=== PATIENT | female | born 1955 | race Caucasian/White ===

== ENCOUNTER → 2017-05-03 | Outpatient (CLI) | payer BC ==
--- NOTE | 2017-05-07 09:01 | MM ---
Reason for exam: screening (asymptomatic). Last mammogram was performed 1 year and 10 months ago. History: Patient is postmenopausal and had first child at age 38. Took estrogen for 4 years beginning at age 54. Physical Findings: A clinical breast exam by your physician is recommended on an annual basis and results should be correlated with mammographic findings. MG 3D Screening Mammo W/Cad Bilateral CC and MLO view(s) were taken. Prior study comparison: July 13, 2015, bilateral MG work up mamm w CAD BILAT. July 06, 2015, bilateral MG screening mammo w CAD. June 09, 2014, bilateral MG screening mammo w CAD. May 13, 2013, bilateral digital screening mammo w/CAD. The breast tissue is heterogeneously dense. This may lower the sensitivity of mammography. No significant changes when compared with prior studies. ASSESSMENT: Negative, BI-RAD 1 RECOMMENDATION: Routine screening mammogram of both breasts in 1 year.
== END | disposition home or self-care (01) ==
LOC: RADMAMWWP 09:43
PROVIDERS: ATTEND Obstetrics & Gynecology
DX: Z12.31 Encounter for screening mammogram for malignant neoplasm of breast (principal)
CPT/HCPCS: 77063; 77067

== ENCOUNTER → 2018-09-09 | Outpatient (CLI) | payer BC ==
--- NOTE | 2018-09-10 08:00 | MM ---
Reason for exam: additional evaluation requested from prior study. Last mammogram was performed 1 year and 4 months ago. History: Patient is postmenopausal and had first child at age 38. Took estrogen for 4 years beginning at age 54. Physical Findings: Nurse Summary: 1.5cm nodule in the right breast at 5-6 o'clock near nipple (nurse mj). MG 3D Diag Mammo W/Cad LUIS Bilateral CC and MLO view(s) were taken. Spot compression MLO and ML view(s) were taken of the right breast. Prior study comparison: May 03, 2017, bilateral MG 3d screening mammo w/cad. July 13, 2015, bilateral MG work up mamm w CAD BILAT. The breast tissue is heterogeneously dense. This may lower the sensitivity of mammography. Finding #1: There is a 8 mm round mass in the upper outer quadrant, middle position of the right breast. Finding #2: There are typically benign round calcifications in both breasts. These results were verbally communicated with the patient and result sheet given to the patient on 09/09/18. ASSESSMENT: Incomplete: need additional imaging evaluation, BI-RAD 0 RECOMMENDATION: Ultrasound of the right breast. (right mammographic abnormality and palpable)
--- NOTE | 2018-09-10 08:02 | USB ---
Reason for exam: additional evaluation requested from abnormal screening. History: Patient is postmenopausal and had first child at age 38. Took estrogen for 4 years beginning at age 54. US Breast RT Right complete breast ultrasound includes all four quadrants, the retroareolar region and axilla. Finding demonstrates a 0.6 x 0.5 x 0.6cm round, hypoechoic, vascular lesion at 5 o'clock. These results were verbally communicated with the patient and result sheet given to the patient on 09/09/18. ASSESSMENT: Suspicious, BI-RAD 4 RECOMMENDATION: Ultrasound core biopsy of the right breast. (+/- FNA) Called Dr. Schulte with mammographic findings and has scheduled an appointment for the patient for 10/08/18 at 1:[address] Sidhu. Biopsy scheduled for 10/01/18 at 2:00. PRELIMINARY REPORT CALLED AND FAXED TO DR. SIDHU ON 09/10/18.
== END | disposition home or self-care (01) ==
LOC: RADMAMWWP 14:20
PROVIDERS: ATTEND Obstetrics & Gynecology
DX: N64.4 Mastodynia (principal); R92.8 Other abnormal and inconclusive findings on diagnostic imaging of breast
CPT/HCPCS: 77062; 77066

== ENCOUNTER → 2018-10-01 | Day surgery (SDC) | payer BC ==
[2018-10-01 13:45] VITALS: RESP 16; BMI 22.1
[2018-10-01 14:42] VITALS: BP 114/74; PULSE 64; TEMP 97.8
--- NOTE | 2018-10-02 09:14 | USB ---
EXAMINATION TYPE: US biopsy breast VAD RT DATE OF EXAM: 10/01/2018 CLINICAL HISTORY: R92.8 Abnormal mammogram. TECHNIQUE: Ultrasound guided core biopsy of right breast. COMPARISON: Right breast ultrasound dated 09/09/2018 and diagnostic mammogram dated 09/09/2018 FINDINGS: The procedure of ultrasound guided core biopsy was explained to the patient. Benefits, alternatives, and risks were discussed. An informed consent was then obtained. A procedural timeout was performed. The patient was placed in supine positioning for imaging and for the procedure. The overlying skin was prepped and draped in usual sterile fashion. 10 cc of 1% lidocaine without epinephrine was used as anesthetic into the skin and subcutaneous tissue up to a 6 mm mass at the 5:00 position in the right breast. Under ultrasound guidance, a 12-gauge vacuum assisted biopsy gun device was used to obtain 5 core samples. Following this, a coil-shaped biopsy marker was left at the site of biopsy. Postprocedure mammogram demonstrates appropriate biopsy marker placement. The patient tolerated the procedure well without any immediate complication. The patient was kept in the radiology department for short stay after the procedure and then discharged home in stable condition. IMPRESSION: Successful, uncomplicated ultrasound guided core biopsy of a 6 mm mass at the 5:00 position in the right breast, full pathology results to follow. Pathology Results: Benign RIGHT BREAST, FIVE O'CLOCK, ULTRASOUND GUIDED CORE BIOPSY: Nodular scar with inflammation and fat necrosis. Negative for malignancy. See note. Recommendation Follow up ultrasound of the right breast in 6 months. GYPSYD
--- NOTE | 2018-10-02 09:21 | MM ---
Reason for exam: additional evaluation requested from abnormal screening. Last mammogram was performed 1 month ago. History: Patient is postmenopausal and had first child at age 38. Took estrogen for 4 years beginning at age 54. MG Diagnostic Mammo RT Wo CAD CC and ML view(s) were taken of the right breast. Prior study comparison: September 09, 2018, bilateral MG 3d diag mammo w/cad LUIS. May 03, 2017, bilateral MG 3d screening mammo w/cad. ASSESSMENT: Post procedure mammogram for marker placement RECOMMENDATION: Ultrasound of the right breast in 6 months. PENDING PATHOLOGY RESULTS.
== END ==
LOC: RADUSWWP 12:57
PROVIDERS: ATTEND Student in an Organized Health Care Education/Training Program
DX: N64.1 Fat necrosis of breast (principal); Z78.0 Asymptomatic menopausal state
CPT/HCPCS: 88305; 88342; 88341; 77065; 19083; A4648; J2001

== ENCOUNTER → 2019-05-13 | Outpatient (CLI) | payer BC ==
--- NOTE | 2019-05-13 09:24 | USB ---
Reason for exam: follow-up at short interval from prior study. History: Patient is postmenopausal and had first child at age 38. Benign US biopsy breast VAD RT of the right breast, October 01, 2018. Took estrogen for 4 years beginning at age 54. Physical Findings: Nurse did not find any significant physical abnormalities on exam. US Breast Limited RT Right limited breast ultrasound including focal area of concern, retroareolar and axilla demonstrates a oval, hypoechoic lesion at 5 o'clock biopsy area with clip and a 1.5 x 1.2 x 0.7cm lymph node at the axilla. These results were verbally communicated with the patient and result sheet given to the patient on 05/13/19. ASSESSMENT: Probably benign, BI-RAD 3 RECOMMENDATION: Routine screening mammogram of both breasts in 5 months. Back on schedule for September 2019. Ultrasound of the right breast in 5 months.
== END | disposition home or self-care (01) ==
LOC: RADUSWWP 08:29
PROVIDERS: ATTEND Student in an Organized Health Care Education/Training Program
DX: R92.8 Other abnormal and inconclusive findings on diagnostic imaging of breast (principal)

== ENCOUNTER → 2019-10-28 | Outpatient (CLI) | payer BC ==
--- NOTE | 2019-11-03 11:40 | MM ---
Reason for exam: additional evaluation requested from prior study. Last mammogram was performed 1 year and 1 month ago. History: Patient is postmenopausal and had first child at age 38. Benign US biopsy breast VAD RT of the right breast, October 01, 2018. Took estrogen for 4 years beginning at age 54. Physical Findings: Nurse did not find any significant physical abnormalities on exam. MG 3D Diag Mammo W/Cad LUIS Bilateral CC and MLO view(s) were taken. Prior study comparison: October 01, 2018, right breast MG diagnostic mammo RT wo CAD. September 09, 2018, bilateral MG 3d diag mammo w/cad LUIS. The breast tissue is extremely dense which could obscure a lesion on mammography. No significant new findings when compared with previous films. These results were verbally communicated with the patient and result sheet given to the patient on 10/28/19. ASSESSMENT: Benign, BI-RAD 2 RECOMMENDATION: Routine screening mammogram of both breasts in 1 year.
--- NOTE | 2019-11-03 11:41 | USB ---
Reason for exam: follow-up at short interval from prior study. History: Patient is postmenopausal and had first child at age 38. Benign US biopsy breast VAD RT of the right breast, October 01, 2018. Took estrogen for 4 years beginning at age 54. US Breast Limited RT Right limited breast ultrasound including focal area of concern, retroareolar and axilla demonstrates a 0.3 x 0.3 x 0.2cm oval, cystic lesion at 3 o'clock, a 0.7 x 0.6 x 0.3cm oval, mixed lesion at 5 o'clock prior biopsy site and a 1.2 x 1.2 x 0.8cm oval lymph node at the axilla. These results were verbally communicated with the patient and result sheet given to the patient on 10/28/19. ASSESSMENT: Benign, BI-RAD 2 RECOMMENDATION: Routine screening mammogram of both breasts in 1 year.
== END | disposition home or self-care (01) ==
LOC: RADMAMWWP 14:57
PROVIDERS: ATTEND Obstetrics & Gynecology
DX: R92.8 Other abnormal and inconclusive findings on diagnostic imaging of breast (principal)
CPT/HCPCS: 77062; 77066

== ENCOUNTER → 2021-09-20 | Outpatient (CLI) | payer MEDICARE ==
--- NOTE | 2021-09-21 08:00 | MM ---
Reason for Exam: Screening (asymptomatic). Last mammogram was performed 1 year(s) and 10 month(s) ago. Patient History: Menarche at age 13. First Full-Term at age 38. Late child-bearing (after 30). Postmenopausal. Estrogen for 4 years from age 54 until age 59. 10/01/2018, Benign Core Biopsy on the right side. Risk Values: Emily 5 year model risk: 2.7%. NCI Lifetime model risk: 10.0%. Prior Study Comparison: 09/09/2018 Bilateral Diagnostic Mammogram, [facility]. 10/01/2018 Right Diagnostic Mammogram, [facility]. 10/28/2019 Bilateral Diagnostic Mammogram, [facility]. Tissue Density: The breast tissue is heterogeneously dense. This may lower the sensitivity of mammography. Findings: Analyzed By CAD. Increasing nodularity upper central right breast. No suspicious calcifications. Overall Assessment: Incomplete: need additional imaging evaluation, BI-RAD 0 Management: Diagnostic Mammogram of the right breast. A clinical breast exam by your physician is recommended on an annual basis and results should be correlated with mammographic findings. Electronically signed and approved by: Abner Ohara M.D. Radiologis
== END | disposition home or self-care (01) ==
LOC: RADMAMWWP 07:18
PROVIDERS: ATTEND Obstetrics & Gynecology
DX: Z12.31 Encounter for screening mammogram for malignant neoplasm of breast (principal); Z78.0 Asymptomatic menopausal state
CPT/HCPCS: 77067

== ENCOUNTER → 2021-09-22 | Outpatient (CLI) | payer MEDICARE ==
--- NOTE | 2021-09-27 13:46 | MM ---
Reason for Exam: Additional evaluation requested from abnormal screening. Last screening mammogram was performed less than 1 month ago. Patient History: Menarche at age 13. First Full-Term at age 38. Late child-bearing (after 30). Postmenopausal. Estrogen for 4 years from age 54 until age 59. 10/01/2018, Benign Core Biopsy on the right side. Risk Values: Emily 5 year model risk: 2.7%. NCI Lifetime model risk: 10.0%. Prior Study Comparison: 10/01/2018 Right Diagnostic Mammogram, [facility]. 10/28/2019 Bilateral Diagnostic Mammogram, [facility]. 09/20/2021 Bilateral MG screening mammo w CAD, [facility]. Tissue Density: Right: The breast tissue is heterogeneously dense. This may lower the sensitivity of mammography. Findings: Analyzed By CAD. Under compression the area of increased density in the upper outer posterior right breast appears to disperse normally. No suspicious underlying spiculated or lobular mass is evident. Medial lateral view appears unremarkable. Overall Assessment: Probably benign, BI-RAD 3 Management: Diagnostic Mammogram of the right breast in 6 months. A clinical breast exam by your physician is recommended on an annual basis and results should be correlated with mammographic findings. This exam should not preclude additional follow-up of suspicious palpable abnormalities. Results were given to the patient verbally at the time of exam. Electronically signed and approved by: Melquiades Correia D.O. Radiologis
== END | disposition home or self-care (01) ==
LOC: RADMAMWWP 15:07
PROVIDERS: ATTEND Obstetrics & Gynecology
DX: R92.8 Other abnormal and inconclusive findings on diagnostic imaging of breast (principal); Z78.0 Asymptomatic menopausal state
CPT/HCPCS: 77065

== ENCOUNTER → 2022-09-26 | Outpatient (CLI) | payer MEDICARE ==
--- NOTE | 2022-09-27 08:11 | MM ---
Reason for Exam: Screening (asymptomatic). Last mammogram was performed 1 year(s) and 1 month(s) ago. Patient History: Menarche at age 13. First Full-Term at age 38. Late child-bearing (after 30). Postmenopausal. Patient has history of breast feeding. Estrogen for 4 years from age 54 until age 59. 10/01/2018, Benign Core Biopsy on the right side. Risk Values: Emily 5 year model risk: 2.7%. NCI Lifetime model risk: 9.7%. Prior Study Comparison: 09/20/2021 Bilateral MG screening mammo w CAD, [facility]. 09/22/2021 Right MG work up mamm w CAD RT, [facility]. 05/30/2022 Right MG diagnostic mammo RT w CAD, [facility]. Tissue Density: The breast tissue is heterogeneously dense. This may lower the sensitivity of mammography. Findings: Analyzed By CAD. Right breast biopsy clip. There is no suspicious group of microcalcifications or new suspicious mass in either breast. Overall Assessment: Negative, BI-RAD 1 Management: Screening Mammogram of both breasts in [address] [facility] will attempt to contact patient to return for supplemental views and ultrasound if indicated. Patient should continue monthly self-breast exams. A clinical breast exam by your physician is recommended on an annual basis. This exam should not preclude additional follow-up of suspicious palpable abnormalities. Note on Emily scores and lifetime risk: 1. A Emily score greater than 3% is considered moderate risk. If this is the case, consider specialist referral to assess eligibility for a risk reducing agent. 2. If overall lifetime risk for the development of breast cancer is 20% or higher, the patient may qualify for future screening with alternating mammogram and breast MRI. Electronically signed and approved by: Solitario Travis DO
== END | disposition home or self-care (01) ==
LOC: RADMAMWWP 06:46
PROVIDERS: ATTEND Obstetrics & Gynecology
DX: Z12.31 Encounter for screening mammogram for malignant neoplasm of breast (principal); Z78.0 Asymptomatic menopausal state
CPT/HCPCS: 77063; 77067

== ENCOUNTER → 2022-10-11 | Outpatient (CLI) | payer MEDICARE ==
--- NOTE | 2022-10-11 15:06 | US ---
EXAMINATION TYPE: US kidneys/renal and bladder DATE OF EXAM: 10/11/2022 COMPARISON: NONE CLINICAL INDICATION: Female, 67 years old with history of R31.29 OTHER MICROSCOPIC HEMATURI; Microsco pic hematuria. EXAM MEASUREMENTS: Right Kidney: 9.7 x 5.4 x 4.1 cm Left Kidney: 10.2 x 4.6 x 5.0 cm Right Kidney: Lower pole echogenic focus with shadow = 0.7 cm Left Kidney: Possible dilated renal collecting system. Echogenic medial echogenic focus- 0.8 cm Bladder: distended, anechoic Left jet seen There is no evidence for hydronephrosis at this point in time. The urinary bladder is anechoic. Obed ateral ureteral jets are seen. IMPRESSION: 1. Mild hydronephrosis suggested. 2. Bilateral nephrolithiasis.
== END | disposition home or self-care (01) ==
LOC: RADUSWWP 13:55
PROVIDERS: ATTEND Internal Medicine
DX: N20.0 Calculus of kidney (principal); R31.29 Other microscopic hematuria
CPT/HCPCS: 76770

== ENCOUNTER 2022-11-14 09:02 | Day surgery (SDC) | payer MEDICARE ==
[2022-11-12 16:47] VITALS: BMI 22.7
[~2022-11-14 09:02] MED LIST: LACTATED RINGERS 1,000 ML IV SCH
[2022-11-14] MEDS ORDERED: LACTATED RINGERS 1,000 ML IV ONE (09:20)
[2022-11-14 09:32] VITALS: TEMP 97.2
[2022-11-14] MEDS ORDERED: PROPOFOL 10 MG/ML 20 ML VIAL IV ONE (10:02)
[2022-11-14] MEDS ORDERED: LIDOCAINE 2% INJ 20 MG/ML (2 ML VIAL) ONE (10:02)
--- NOTE | 2022-11-14 10:22 | P.PCN ---
Date of Procedure: 11/14/22 Procedure(s) Performed: BRIEF HISTORY: Patient is a 67-year-old pleasant white female scheduled for an elective colonoscopy as a part of screening for colon cancer. PROCEDURE PERFORMED: Colonoscopy with biopsy. PREOPERATIVE DIAGNOSIS: Screening for colon cancer. IV sedation per Anesthesia. PROCEDURE: After informed consent was obtained, the patient, was brought into the endoscopy unit. IV sedation was administered by Anesthesia under continuous monitoring. Digital rectal examination was normal. Initially the Olympus CF-160 flexible video colonoscope was then inserted in the rectum, gradually advanced into the cecum without any difficulty. Careful examination was performed as the scope was gradually being withdrawn. Ileocecal valve and the appendiceal orifice were visualized and appeared normal. Prep was excellent. Mucosa of the cecum, appeared normal. Ascending colon there was a 5 mm flat polyp removed by cold biopsy. In the transverse colon there was another 5 mm Flat polyp removed by cold biopsy. Rest of the ascending colon, transverse colon, descending colon, sigmoid colon, and rectum appeared normal. Retroflexion was performed in the rectum and no lesions were seen. The patient tolerated the procedure well. IMPRESSION: 5 mm flat ascending colon polyp serous was cold biopsy 5 mm flat transverse colon polyp status post cold biopsy RECOMMENDATIONS: Findings of this examination were discussed with the patient as well as a family. She was advised to follow with the biopsy results and if the biopsy reveals adenoma she can have a repeat colonoscopy in 5 years
[2022-11-14 10:29] VITALS: RESP 16
[2022-11-14 10:41] VITALS: BP 122/77; PULSE 54
== END 2022-11-14 11:10 | disposition home or self-care (01) ==
LOC: ORWHC2ENDO 09:02
PROVIDERS: ATTEND Internal Medicine Gastroenterology
DX: Z12.11 Encounter for screening for malignant neoplasm of colon (principal); K63.5 Polyp of colon; E78.5 Hyperlipidemia, unspecified; Z91.030 Bee allergy status; Z79.899 Other long term (current) drug therapy
CPT/HCPCS: 88305; 45380; J2704; J2001

== ENCOUNTER → 2023-01-09 | Outpatient (CLI) | payer MEDICARE ==
[2023-01-09 09:17] LABS: African American GFR (CKD) 86 (>60 ml/min/1.73 sqM); Blood Urea Nitrogen 26 mg/dL (7-17); Non-African American GFR(CKD) 75 (>60 ml/min/1.73 sqM)
--- NOTE | 2023-01-09 11:27 | CT ---
EXAMINATION TYPE: CT urogram wo/w con DATE OF EXAM: 01/09/2023 COMPARISON: None HISTORY: 67-year-old female R31.29, other Microscopic hematuria TECHNIQUE: Contiguous axial scanning of the abdomen and pelvis performed without and with IV Contrast , patient injected with 100 mL of Isovue 300. Delayed images through the kidneys and bladder were obt ained. Coronal/sagittal reconstructions performed. 3-D reconstructions generated on a dedicated sougou workstation. CT DLP: 1155.6 mGycm Automated exposure control for dose reduction was used. FINDINGS: Heart normal size without pericardial effusion. Linear atelectasis or scarring in the lower lungs wit hout pleural effusion. There is a tiny hiatal hernia. A few small hepatic cysts measuring up to 1.2 cm. Portal venous system is patent. No biliary ductal d ilatation. Gallbladder, adrenal glands, spleen, and pancreas within normal limits. No dilated small bowel, free fluid, or free air. No mesenteric or retroperitoneal lymphadenopathy. Some prominent fluid-filled small bowel loops mid to lower abdomen and pelvis. Normal appendix. Mild to moderate stool burden. Sigmoid diverticulosis. No pericolonic inflammatory c hange. Bladder urine distended. Left-sided pelvic phleboliths. Uterus is anteverted. Left ovary is seen. Rig ht ovary not clearly delineated from adjacent clustered bowel loops. There appears to be trace cul-de -sac free fluid. No pelvic lymphadenopathy seen. Bones: Facet arthropathy mid to lower lumbar spine. Urogram: There are 2 nonobstructive right renal calculi measuring up to 7 mm. There is a round fat density cor tical lesion measuring 1.1 cm medial lower pole right kidney compatible with an AML. Parapelvic cysts left kidney measuring up to 1.9 cm. A couple small renal cortical cysts on both sides measuring up t o 9 mm. No suspicious renal lesion on either side. There is no hydronephrosis. No abnormal filling de fects seen within the renal collecting systems or along the course of either ureter. IMPRESSION: 1. TWO NONOBSTRUCTIVE RIGHT RENAL CALCULI MEASURING UP TO 7 MM. NO HYDRONEPHROSIS. 2. A FEW SMALL RENAL CORTICAL CYSTS MEASURING UP TO 9 MM. A BENIGN 1.1 CM AND NOW WITHIN THE RIGHT KI DNEY. ADDITIONAL PARAPELVIC CYSTS WITHIN THE LEFT KIDNEY MEASURING UP TO 1.9 CM. 3. NO SUSPICIOUS RENAL MASS OR FILLING DEFECT WITHIN THE RENAL COLLECTING SYSTEMS. 4. SOME PROMINENT FLUID-FILLED SMALL BOWEL LOOPS MID TO LOWER ABDOMEN AND PELVIS MAY BE TRANSIENT OR COULD REPRESENT A NONSPECIFIC MILD ENTERITIS. TRACE PELVIC FREE FLUID ATYPICAL FOR A POSTMENOPAUSAL F EMALE MAY BE REACTIVE. 5. TINY HIATAL HERNIA. SIGMOID DIVERTICULOSIS WITHOUT ACUTE DIVERTICULITIS.
== END | disposition home or self-care (01) ==
LOC: RADCTMAIN 07:50
PROVIDERS: ATTEND Internal Medicine
DX: K44.9 Diaphragmatic hernia without obstruction or gangrene (principal); K57.30 Diverticulosis of large intestine without perforation or abscess without bleeding; N28.1 Cyst of kidney, acquired; K52.9 Noninfective gastroenteritis and colitis, unspecified; N20.0 Calculus of kidney; R31.29 Other microscopic hematuria
CPT/HCPCS: 82565; 84520; 74178; 36415; 74400; Q9967